=== PATIENT | male | born 1955 | race Caucasian/White ===

== ENCOUNTER 2018-10-29 09:54 | Emergency (ER) | payer SELFPAY ==
[2018-10-29] MEDS ORDERED: ALBUTEROL/IPRATROPIUM 3 ML NEB NEB ONE (10:05)
[2018-10-29] MEDS ORDERED: LR IV ONE (10:05)
[2018-10-29] MEDS ORDERED: LR(*) 1000 ML BAG 1,000 ML ONE ×2 (10:10→12:28)
--- NOTE | 2018-10-29 10:13 | ER Report ---
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 Patient states he has had 5 days of generalized weakness, cough productive of black sputum, mild dyspnea. He has had some nausea. He denies other focal symptoms. The symptoms have been gradually progressive, he states he has had not eaten anything in 5 days. He states his only by mouth intake has been a couple mo untain dews a day. Patient denies chest pain or pressure. He denies severe headaches. He denies abdominal pain, diarrhea, dysuria, leg swelling. He has no cardiac history that he reports. He has no history of DVT. He has no known sick contacts. He has COPD but is not currently on meds. He denies other medical problems. He denies tobacco use stating he quit 4 months ago. He denies recent alcohol intake. He denies drug use. He denies focal weakness REVIEW OF SYSTEMS: Constitutional: significant fatigue and generalized weakness Eyes: No discharge. ENT: dry mouth Cardiovascular: No chest pain, no palpitations. Respiratory: above Gastrointestinal: No abdominal pain, no vomiting. Genitourinary: no dysuria Musculoskeletal: myalgias throughout Skin: No rashes. Neurological: No headache. Remainder of the 14 system rev: Yes Allergies: Coded Allergies: No Known Drug Allergies (Unverified , 10/29/18) Home Meds No Active Prescriptions or Reported Meds Reviewed Nurses Notes: Yes Constitutional Vital Sign - Last 24 Hours 10/29/18 10/29/18 10/29/18 10/29/18 10:08 10:19 10:19 10:28 Temp 98.5 Pulse 111 92 107 Resp 22 22 22 B/P (MAP) 119/75 Pulse Ox 93 92 O2 Delivery Non-Rebreather Non-Rebreather O2 Flow Rate 13.0 10/29/18 11:00 O2 Flow Rate 5.0 Physical Exam General Appearance: The patient is alert, has no immediate need for airway protection and no signs of toxicity. Eyes: Pupils equal and round no pallor or injection. ENT, Mouth: mucous membranes dry Respiratory: decreased breath sounds throughout. Moderate air movement. No r/r/w Cardiovascular: tachycardic, reg rhythm Gastrointestinal: Abdomen is soft and non tender, no masses, bowel sounds normal. Neurological: awake, oriented x 3, appears fatigued, cn's intact, no nystagmus, no focal deficits Skin: Warm and dry, no rashes. Musculoskeletal: Extremities are nontender, nonswollen and have full range of motion. DIFFERENTIAL DIAGNOSIS: After history and physical exam differential diagnosis was considered for altered mental status including but not limited to hypoglycemia, infectious process, electrolyte abnormality, head injury and intoxicants. adult fever including but not limited to viral syndromes including influenza, urinary tract infection, pneumonia and sepsis, dka, acs, shortness of breath including but not limited to pulmonary infectious process, COPD, asthma, pulmonary embolus and congestive heart failure. Medical Decision Making Data Points Result Diagram: 10/29/1828 10/29/18 0928 Laboratory Hematology Test 10/29/18 09:28 10/29/18 10:21 10/29/18 10:34 Red Blood Count 6.33 M/uL (4.00-5.60) Mean Corpuscular Volume 90.3 fL (80.0-96.0) Mean Corpuscular Hemoglobin 30.4 pg (26.0-33.0) Mean Corpuscular Hemoglobin Concent 33.7 g/dL (32.0-36.0) Red Cell Distribution Width 13.7 % (11.5-14.5) Mean Platelet Volume 10.8 fL (7.2-11.1) Neutrophils (%) (Auto) 89.1 % (39.4-72.5) Lymphocytes (%) (Auto) 5.3 % (17.6-49.6) Monocytes (%) (Auto) 5.4 % (4.1-12.4) Eosinophils (%) (Auto) 0.0 % (0.4-6.7) Basophils (%) (Auto) 0.2 % (0.3-1.4) Nucleated RBC Relative Count (auto) 0.1 /100WBC Neutrophils # (Auto) 15.3 K/uL (2.0-7.4) Lymphocytes # (Auto) 0.9 K/uL (1.3-3.6) Monocytes # (Auto) 0.9 K/uL (0.3-1.0) Eosinophils # (Auto) 0.0 K/uL (0.0-0.5) Basophils # (Auto) 0.0 K/uL (0.0-0.1) Nucleated RBC Absolute Count (auto) 0.01 K/uL Peripheral Blood Smear Yes Y/N D-Dimer Quantitative (PE/DVT) 2.05 ug/ml (0-0.50) Blood Gas Patient Temperature Unknown DEGREES Venous Blood pH 7.31 (7.31-7.41) Venous Blood Partial Pressure CO2 52 mmHg Venous Blood Partial Pressure O2 < 35 mmHg Venous Blood HCO3 26 mmol/L Venous Blood Oxygen Saturation 41 % Venous Blood Base Excess 0 mmol/L Oxygen Liters/Minute Unknown Sodium Level 150 mmol/L (137-145) Potassium Level 4.6 mmol/L (3.5-5.0) Chloride Level 106 mmol/L (98-107) Carbon Dioxide Level 27 mmol/L (22-30) Blood Urea Nitrogen 72 mg/dl (9-21) Creatinine 2.00 mg/dl (0.66-1.25) Glomerular Filtration Rate Calc 33.9 Random Glucose 254 mg/dl (75-110) Calcium Level 10.0 mg/dl (8.4-10.2) Magnesium Level 3.7 mg/dl (1.7-2.2) Total Bilirubin 3.4 mg/dl (0.2-1.3) Aspartate Amino Transf (AST/SGOT) 56 U/L (0-35) Alanine Aminotransferase (ALT/SGPT) 53 U/L (0-56) Alkaline Phosphatase 102 U/L (0-126) Troponin I 0.045 ng/ml Total Protein 7.2 g/dl (6.3-8.2) Albumin 3.9 g/dl (3.5-5.0) Lipase 92 U/L (23-300) Influenza Virus Type A (PCR) Positive (NEGATIVE) Influenza Virus Type B (PCR) Negative (NEGATIVE) Lactate 3.1 mmol/L (0.7-2.1) Chemistry Test 10/29/18 09:28 10/29/18 10:21 10/29/18 10:34 White Blood Count 17.2 k/uL (4.5-11.0) Red Blood Count 6.33 M/uL (4.00-5.60) Hemoglobin 19.3 g/dL (14.0-18.0) Hematocrit 57.2 % (42.0-52.0) Mean Corpuscular Volume 90.3 fL (80.0-96.0) Mean Corpuscular Hemoglobin 30.4 pg (26.0-33.0) Mean Corpuscular Hemoglobin Concent 33.7 g/dL (32.0-36.0) Red Cell Distribution Width 13.7 % (11.5-14.5) Platelet Count 218 K/uL (150-450) Mean Platelet Volume 10.8 fL (7.2-11.1) Neutrophils (%) (Auto) 89.1 % (39.4-72.5) Lymphocytes (%) (Auto) 5.3 % (17.6-49.6) Monocytes (%) (Auto) 5.4 % (4.1-12.4) Eosinophils (%) (Auto) 0.0 % (0.4-6.7) Basophils (%) (Auto) 0.2 % (0.3-1.4) Nucleated RBC Relative Count (auto) 0.1 /100WBC Neutrophils # (Auto) 15.3 K/uL (2.0-7.4) Lymphocytes # (Auto) 0.9 K/uL (1.3-3.6) Monocytes # (Auto) 0.9 K/uL (0.3-1.0) Eosinophils # (Auto) 0.0 K/uL (0.0-0.5) Basophils # (Auto) 0.0 K/uL (0.0-0.1) Nucleated RBC Absolute Count (auto) 0.01 K/uL Peripheral Blood Smear Yes Y/N D-Dimer Quantitative (PE/DVT) 2.05 ug/ml (0-0.50) Blood Gas Patient Temperature Unknown DEGREES Venous Blood pH 7.31 (7.31-7.41) Venous Blood Partial Pressure CO2 52 mmHg Venous Blood Partial Pressure O2 < 35 mmHg Venous Blood HCO3 26 mmol/L Venous Blood Oxygen Saturation 41 % Venous Blood Base Excess 0 mmol/L Oxygen Liters/Minute Unknown Glomerular Filtration Rate Calc 33.9 Calcium Level 10.0 mg/dl (8.4-10.2) Magnesium Level 3.7 mg/dl (1.7-2.2) Total Bilirubin 3.4 mg/dl (0.2-1.3) Aspartate Amino Transf (AST/SGOT) 56 U/L (0-35) Alanine Aminotransferase (ALT/SGPT) 53 U/L (0-56) Alkaline Phosphatase 102 U/L (0-126) Troponin I 0.045 ng/ml Total Protein 7.2 g/dl (6.3-8.2) Albumin 3.9 g/dl (3.5-5.0) Lipase 92 U/L (23-300) Influenza Virus Type A (PCR) Positive (NEGATIVE) Influenza Virus Type B (PCR) Negative (NEGATIVE) Lactate 3.1 mmol/L (0.7-2.1) Coagulation Test 10/29/18 09:28 D-Dimer Quantitative (PE/DVT) 2.05 ug/ml EKG/Imaging EKG Interpretation 12 lead EKG: Rhythm: sinus tachycardia [place]: rightwarda axis QRS: widened - RBBB ST segments: elevations c/w RBBB Sinus tachycardia with RBBB. Findings not c/w STEMI Monitor Interpretation: Sinus Tachycardia ED Course/Re-evaluation ED Course 63 m presents with 5 d of fatigue, generalized weakness; findings consistent with influenza, pneumonia, elevated creatinine, likely SINDHU, with other signs of dehydration. Potassium, of note, is normal. Patient has elevated troponin that may be secondary to demand ischemia there are no dynamic EKG changes. Patient has an elevated d-dimer of over 2. This may be consistent with infection, however given tachycardia, right bundle branch block that I cannot prove is old, and other findings, this may be consistent with PE. Cannot obtain CT at this time due to renal function. For these consolation of symptoms, I am concerned patient needs osteopathic medicine teacher and blocker and cutter contact lens inpatient. I discussed this with our hospitalist who agrees. Therefore, I consulted [facility] for transfer. I discussed with osteopathic medicine teacher who felt it was not need for acute intervention at this time. I discussed with hospitalist who agrees to transfer. Pt has received asa 325 mg po, tamiflu 75mg, cefipime for unk etiology of pneumonia assoc with sgs of sepsis, 30cc/kg of LR, and heparin PE dosing. Decision to Disposition Date: Oct 29, 2018 Decision to Disposition Time: 12:26 Critical Care Time I spent a total of 75 minutes of critical care time in obtaining history, performing a physical exam, bedside monitoring of interventions, collecting and interpreting tests and discussion with consultants but not including time spent performing procedures. Depart Departure Latest Vital Signs Vital Signs Date Time Temp Pulse Resp B/P (MAP) Pulse Ox O2 Delivery O2 Flow Rate FiO2 10/29/18 11:00 5.0 10/29/18 10:28 107 22 10/29/18 10:19 92 Non-Rebreather 10/29/18 10:08 98.5 119/75 Impression: Primary Impression: Pneumonia Additional Impressions: Influenza A Renal insufficiency Dehydration Elevated troponin Elevated d-dimer Condition: Critical Disposition: XFER TO [facility] ([facility]) New Scripts No Active Prescriptions or Reported Meds Problem Qualifiers Primary Impression: Pneumonia Pneumonia type: due to unspecified organism Laterality: left Lung location: lower lobe of lung Qualified Codes: J18.1 - Lobar pneumonia, unspecified organism KANDICE MEDRANO MD Oct 29, 2018 10:13
[2018-10-29 10:17] LABS: PLATELET COUNT, AUTOMATED 218 K/uL (150-450)
[2018-10-29] MEDS ORDERED: ASPIRIN 81 MG CHEW PO ONE (10:50)
--- NOTE | 2018-10-29 11:22 | RADIOLOGY IMAGING REPORT ---
FACILITY: [facility] PATIENT NAME: Luis Swartz : 1955 MR: [id number] V: [id number] EXAM DATE: ORDERING PHYSICIAN: KANDICE MEDRANO TECHNOLOGIST: Location: [facility] Patient: Luis Swartz : 1955 Visit/Account:[id number] Date of Sevice: 10/29/2018 CHEST SINGLE AP Indication: dyspnea Comparison: None. Findings: Lungs: Airspace opacity seen at left lung. Right lung is clear. Mediastinum/pulmonary vasculature: Heart size and pulmonary vasculature are normal. Bones/soft tissues: Normal. IMPRESSION: Left lung airspace opacity consistent with pneumonia. Report Dictated By: Siddharth Amin at 10/29/2018 11:08 AM Report E-Signed By: Siddharth Amin at 10/29/2018 11:18 AM WSN:[id number]
[2018-10-29] MEDS ORDERED: [UNRECOGNIZED DRUG - OTHER] IV SCH (11:27)
[2018-10-29] MEDS ORDERED: CEFEPIME HCL 2 GM VIAL IVP ONE (11:30)
[2018-10-29] MEDS ORDERED: HEPARIN (PORC) 5000 UN/ML VIAL IVP ONE (11:30)
[2018-10-29] MEDS ORDERED: OSELTAMIVIR PHOS 75 MG CAP PO ONE (11:30)
--- NOTE | 2018-10-29 11:54 | EKG ---
FACILITY: [facility] [place] PATIENT NAME: VIANEY SOW : [id number] MR: [id number] V: [id number] EXAM DATE: ORDERING PHYSICIAN: KANDICE MEDRANO TECHNOLOGIST: SENDY Rosario Reason : SOB Blood Pressure : / mmHG Vent. Rate : 108 BPM Atrial Rate : 108 BPM P-R Int : 124 ms QRS Dur : 132 ms QT Int : 352 ms P-R-T Axes : 084 100 060 degrees QTc Int : 471 ms Sinus tachycardia Right bundle branch block ST elevation, consider inferolateral injury or acute infarct ACUTE PA Abnormal ECG No previous ECGs available Confirmed by Thien Hartley ([id number]) on 10/29/2018 10:38:17 PM Referred By: MARCELA Confirmed By:Thien Beasley
--- NOTE | 2018-10-29 11:54 | EKG ---
FACILITY: [facility] PATIENT NAME: VIANEY SOW : [id number] MR: [id number] V: [id number] EXAM DATE: ORDERING PHYSICIAN: KANDICE MEDRANO TECHNOLOGIST: Test Reason : Blood Pressure : / mmHG Vent. Rate : 104 BPM Atrial Rate : 104 BPM P-R Int : 124 ms QRS Dur : 128 ms QT Int : 356 ms P-R-T Axes : 080 089 055 degrees QTc Int : 468 ms Sinus tachycardia Right bundle branch block Abnormal ECG When compared with ECG of 29-OCT-2018 09:56, ST segment changes have improved Confirmed by Thien Hartley ([id number]) on 10/29/2018 10:42:15 PM Referred By: Confirmed By:Thien Beasley
[2018-10-29] MEDS ORDERED: HEPARIN (PORC) 5000 UN/ML VIAL ONE ×2 (12:01→12:06)
[2018-10-29] MEDS ORDERED: HEPARIN* SOD/D5W 25000 U/500ML 500 ML IV ONE (12:02)
[2018-10-29 13:45] VITALS: BP 104/72
== END 2018-10-29 13:54 | disposition short-term general hospital (02) ==
LOC: ER 10:06
DX: J18.1 Lobar pneumonia, unspecified organism (principal); J09.X2 Influenza due to identified novel influenza A virus with other respiratory manifestations; E86.0 Dehydration; R79.89 Other specified abnormal findings of blood chemistry
CPT/HCPCS: 36415; 71045; 82803; 83605; 83690; 83735; 84484; 85025; 85379; 87040; 87502; 93005; 94640; 96361; 96365; 96366; 96375; 99291; J0692; J1644; J7120; J7620; 82040; 82247; 82310; 82374; 82435; 82565; 82947; 84075; 84132; 84155; 84295; 84450; 84460; 84520

== ENCOUNTER → 2018-10-29 | Outpatient (CLI) | payer SELFPAY | LOC: AMB 09:02 | PROVIDERS: ATTEND Nurse Practitioner | DX: R53.1 Weakness (principal); R06.00 Dyspnea, unspecified; R09.02 Hypoxemia; R07.9 Chest pain, unspecified; R05 Cough; R53.83 Other fatigue | CPT/HCPCS: A0425; A0427 ==

== ENCOUNTER → 2018-10-29 | Outpatient (CLI) | payer SELFPAY | LOC: AMB 13:36 | PROVIDERS: ATTEND Nurse Practitioner | DX: R79.89 Other specified abnormal findings of blood chemistry (principal); J11.1 Influenza due to unidentified influenza virus with other respiratory manifestations; A41.9 Sepsis, unspecified organism; R06.02 Shortness of breath; R53.1 Weakness | CPT/HCPCS: A0425; A0433 ==